=== PATIENT | male | born 1990 | race Hispanic/Latino ===

== ENCOUNTER 2020-05-15 13:01 | Emergency (ER) | payer MEDICARE ==
[~2020-05-15] VITALS: Ht 180.3 cm; Wt 137.4 kg
--- NOTE | 2020-05-15 13:07 | Emergency Department Note ---
History of Present Illnes History of Present Illness History of Present Illness This is a 29 year old male right-hand dominant that punched a door 3-4 days ago, went to an urgent care had an x-ray and was told he had a boxer's fracture. Denies any other injuries or any other complaints. Pt sent here for a splint. Arrival Mode: [facility]: IV Onset (how long ago): day(s) (4) Location: R hand Quality: sharp Radiation: Reports non-radiation Severity: moderate Duration (how long): day(s) (3) Timing of current episode: constant Progression: worsening Chronicity: new Context: Reports trauma/injury; Denies recent surgery, Denies recent immobilization Relieving factors: none Exacerbating factors: movement Associated symptoms: Reports denies other symptoms Past Medical/Family History Physician Review I have reviewed the patient's past medical and family history. Any updates have been documented here. Review of Systems Review of Systems Constitutional: Reports no symptoms EENTM: Reports no symptoms Cardiovascular: Reports no symptoms Respiratory: Reports no symptoms Gastrointestinal: Reports no symptoms Genitourinary: Reports no symptoms Musculoskeletal: Reports as per HPI Integumentary: Reports no symptoms Neurological: Reports no symptoms Psychological: Reports no symptoms Endocrine: Reports no symptoms Hematological/Lymphatic: Reports no symptoms Physical Exam Related Data Allergies: Coded Allergies: No Known Allergies (Unverified , 05/15/20) Physical Exam CONSTITUTIONAL Constitutional: Present well-developed, Present well-nourished HENT HENT: Present normocephalic, Present atraumatic, Present oropharynx clear/moist, Present nose normal HENT L/R: Present left ext ear normal, Present right ext ear normal EYES Eyes: Reports PERRL, Reports conjunctivae normal NECK Neck: Present ROM normal PULMONARY Pulmonary: Present effort normal, Present breath sounds normal CARDIOVASCULAR Cardiovascular: Present regular rhythm, Present heart sounds normal, Present capillary refill normal, Present normal rate GASTROINTESTINAL Abdominal: Present soft, Present nontender, Present bowel sounds normal GENITOURINARY Genitourinary: Present exam deferred SKIN Skin: Present warm, Present dry MUSCULOSKELETAL Musculoskeletal: Present ROM normal, Present other (right hand with tenderness to palpation and edema over the fourth metacarpal, no scissoring, neurovascularly intact distally. MSK within normal.) NEUROLOGICAL Neurological: Present alert, Present oriented x 3, Present no gross motor or sensory deficits PSYCHOLOGICAL Psychological: Present mood/affect normal, Present judgement normal Procedures Orthopedic Splinting/Casting Injury: Injury #1 Side: right Upper exremity injury location: hand Upper extremity immobilizer: ulnar gutter Additional comments N/V intact distally, check by me Assessment & Plan Medical Decision Making MDM Is a 29-year-old that suffered an injury to his right hand, fourth metacarpal fracture, no scissoring. We'll place an ulnar gutter and referred to orthopedics. Assessment & Plan Final Impression: (1) Boxtk's metacarpal fracture, neck, closed Depart Disposition: HOME, SELF-alf Meds Active Scripts Ibuprofen (IBUPROFEN) 600 Mg Tablet, 1 TAB PO Q6H, #30 Prov:ELLEN KING MD 05/15/20 ELLEN KING MD May 15, 2020 13:07
[2020-05-15] MEDS ORDERED: IBUPROFEN 600 MG TAB PO STA (13:23)
[2020-05-15] MEDS ORDERED: IBUPROFEN600 MG PO (13:26)
--- OUTSIDE RECORDS SUMMARY | 2020-05-21 18:03 | XMS REPORT | Continuity of Care Document ---
Author Author [facility] t Organization [facility] Address [address] [place] [address] Phone Unavailable Care Team Providers Care Inweaver Name Role Phone Unavailable Unavailable Problems Condition Name Condition Details Condition Category Status Onset Date Resolution Date Last Treatment Date Treating Clinician Comments Source Tobacco abuse Tobacco abuse Disease Active 2016-11-07 00:00:00 [facility] Anxiety disorder Anxiety disorder Disease Active [facility] Moderate episode of recurrent major depressive disorde r Moderate episode of recurrent major depressive disorder Disease Active [facility] Severe episode of recurrent major depres sive disorder, 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 Social History Social Habit Start Date Stop Date Quantity Comments Source History of tobacco use Cigarette Smoker [facility] Sex Assigned At [facility] Alcohol intake 2016-11-01 00:00:00 2016-11-01 00:00:00 Current non-drinker of alcohol (finding) [facility] Smoking Status Start Date Stop Date Source Current every day smoker 2016-11-01 00:00:00 [facility] Medications Ordered Medication Name Filled Medication Name Start Date Stop Da te Current Medication? Ordering Clinician Indication Dosage Frequency Signature (SIG) Comments Components Source hydrOXYzine (ATARAX) 25 mg tablet 2018-06-13 00:00:00 Yes Sleep-wake cycle disorder Take one to two tabs by mouth at bedtime as nee ded for sleep. [facility] ARIPiprazole (ABILIFY) 30 mg tablet 2018-05-16 00:00:00 Yes Other specified anxiety disorders 30mg QD Take 1 tablet by mouth daily. [facility] buPROPion (WELLBUTRIN SR) 100 mg sustained release tablet 2018-05-16 00:00:00 Yes Other specified anxiety disorders 100mg Q. 5D Take 1 tablet by mouth 2 times daily. [facility] Procedures This patient has no known procedures. Plan of Care Planned Activity Planned Date Details Comments Source Future Scheduled Test 2020-04-16 00:00:00 IMM Influenza Seas onal Apr to September (>/= 19 yrs) [code = IMM Influenza Seasonal Apr to September (>/= 19 yrs)] [facility] Encounters Start Date/Time End Date/Time Encounter Type Admission Type Att[facility] Care Department Encounter ID Source 2018-07-25 00:00:00 2018-07-25 00:00:00 Outpatient [facility] [id number] [facility] 2018-07-13 00:00:00 2018-07-13 00:00:00 Outpatient [facility] [id number] [facility] 2018-07-13 00:00:00 2018-07-13 00:00:00 Outpatient [facility] [id number] [facility] 2018-07-11 00:00:00 2018-07-11 00:00:00 Outpatient [facility] [id number] [facility] 2018-07-06 00:00:00 2018-07-06 00:00:00 Outpatient [facility] [id number] [facility] 2018-07-06 00:00:00 2018-07-06 00:00:00 Outpatient [facility] [id number] [facility] 2018-07-06 00:00:00 2018-07-06 00:00:00 Outpatient [facility] [id number] [facility] 2018-07-04 00:00:00 2018-07-04 00:00:00 Outpatient [facility] [id number] [facility] 2018-07-04 00:00:00 2018-07-04 00:00:00 Outpatient [facility] [id number] [facility] 2018-07-02 00:00:00 2018-07-02 00:00:00 Outpatient [facility] [id number] [facility] 2018-07-02 00:00:00 2018-07-02 00:00:00 Outpatient [facility] [id number] [facility] 2018-06-29 00:00:00 2018-06-29 00:00:00 Outpatient [facility] [id number] [facility] 2018-06-29 00:00:00 2018-06-29 00:00:00 Outpatient [facility] [id number] [facility] 2018-06-29 00:00:00 2018-06-29 00:00:00 Outpatient [facility] [id number] [facility] 2018-06-27 00:00:00 2018-06-27 00:00:00 Outpatient [facility] [id number] [facility] 2018-06-27 00:00:00 2018-06-27 00:00:00 Outpatient [facility] [id number] [facility] 2018-06-25 00:00:00 2018-06-25 00:00:00 Outpatient [facility] [id number] [facility] 2018-06-22 00:00:00 2018-06-22 00:00:00 Outpatient [facility] [id number] [facility] 2018-06-22 00:00:00 2018-06-22 00:00:00 Outpatient [facility] [id number] [facility] 2018-06-22 00:00:00 2018-06-22 00:00:00 Outpatient [facility] [id number] [facility] 2018-06-22 00:00:00 2018-06-22 00:00:00 Outpatient [facility] [id number] [facility] 2018-06-20 00:00:00 2018-06-20 00:00:00 Outpatient [facility] [id number] [facility] 2018-06-20 00:00:00 2018-06-20 00:00:00 Outpatient [facility] [id number] [facility] 2018-06-20 00:00:00 2018-06-20 00:00:00 Outpatient [facility] [id number] [facility] 2018-06-18 14:11:44 2018-06-18 14:11:44 Outpatient [facility] [id number] [facility] 2018-06-18 14:11:39 2018-06-18 14:11:39 Outpatient [facility] [id number] [facility] 2018-06-18 14:10:37 2018-06-18 14:10:37 Outpatient [facility] [id number] [facility] 2018-06-18 09:09:18 2018-06-18 09:09:18 Outpatient [facility] [id number] [facility] 2018-06-13 15:07:05 2018-06-13 15:07:05 Outpatient [facility] [id number] [facility] 2018-06-13 14:04:55 2018-06-13 14:04:55 Outpatient [facility] [id number] [facility] 2018-06-11 09:39:05 2018-06-11 09:39:05 Outpatient [facility] [id number] [facility] 2018-06-11 08:15:06 2018-06-11 08:15:06 Outpatient [facility] [id number] [facility] 2018-05-21 00:00:00 2018-05-21 00:00:00 Outpatient [facility] [id number] [facility] 2018-05-16 13:45:35 2018-05-16 13:45:35 Outpatient [facility] [id number] [facility] Results This patient has no known results.
--- OUTSIDE RECORDS SUMMARY | 2020-05-21 18:03 | XMS REPORT | Clinical Summary ---
Author Author [facility] ict Organization [facility] ict Address Unknown Phone Unavailable Care Team Providers Care Gate Cutter Name Role Phone PCP Unavailable Allergies No Known Allergies Medications End Date Status Medication Sig Dispensed Refills Start Date Active ARIPiprazole (ABILIFY) 30 Take 1 tablet 30 tablet 1 05/16/201 mg tabletIndications: by mouth 8 Bipolar disorder, in daily. partial remission, most recent episode depressed, Borderline personality disorder, Other specified anxiety disorders Active buPROPion (WELLBUTRIN SR) Take 1 tablet 60 tablet 1 100 mg sustained release by mouth 2 8 tabletIndications: times daily. Bipolar disorder, in partial remission, most recent episode depressed, Borderline personality disorder, Other specified anxiety disorders Active hydrOXYzine (ATARAX) 25 Take one to 60 tablet 1 201 mg tabletIndications: two tabs by 8 Bipolar I disorder with mouth at depression, Sleep-wake bedtime as cycle disorder needed for sleep. Active Problems Problem Noted Date Tobacco abuse 11/07/2016 Anxiety disorder Moderate episode of recurrent major dep ressive disorder Severe episode of recurrent major depre ssive disorder, without psychotic features Depression with suicidal ideation Suicidal ideation Bipolar 1 disorder, depressed, moderate Social History Date Tobacco Use Types Packs/Day Years Used Current Every Day Smoker Cigarettes Drinks/Week oz/Week Comments Alcohol Use No Sex Assigned at Date Recorded Not on file Industry Job Start Date Occupation Not on file Not on file Not on file Travel End Travel History Travel Start No recent travel history available. Last Filed Vital Signs Not on file Plan of Treatment Health Maintenance Due Date Last Done Comments IMM Influenza Seasonal 04/16/2020 Oct to September (>/= 19 yrs) Results Not on fileafter 05/15/2019 Insurance Type Payer Benefit Subscriber ID Effective Phone Address Plan / Dates Group [employer] [facility] [employer] xxxxxxxx 2018- [phone] [facility] Present [address] [place] [address] Advance Directives Date Inactivated Comments Code Status Date Activated 11/07/2016 3:57 PM Full Code 11/03/2016 2:34 AM
== END 2020-05-15 13:41 | disposition home or self-care (01) ==
LOC: ER 13:15
DX: S62.334A Displaced fracture of neck of fourth metacarpal bone, right hand, initial encounter for closed fracture (principal); Y92.008 Other place in unspecified non-institutional (private) residence as the place of occurrence of the external cause; X79.XXXA Intentional self-harm by blunt object, initial encounter
CPT/HCPCS: 99284